=== PATIENT | female | born 1950 | race Caucasian/White ===

== ENCOUNTER 2017-08-27 13:12 | Outpatient (CLI) ==
[2017-08-27 14:46] VITALS: BMI 19.1
== END 2017-08-27 13:13 | disposition home or self-care (01) ==
LOC: DIETCN 13:12
PROVIDERS: ATTEND Family Medicine
DX: R73.01 Impaired fasting glucose (principal)

== ENCOUNTER 2018-03-04 10:26 | Outpatient (CLI) ==
--- NOTE | 2018-03-04 14:44 | DEXA ---
EXAM: Bone Densitometry DEXA HISTORY: Osteoporosis COMPARISON: None FINDINGS: DEXA scan of the lumbar spine was performed. Quality of the study is good. Bone mineral density is 1 .21 C grams per square centimeter. T-score is 0.3. Z-score is 2.3. T score L1 vertebral body is neg ative 1.1 DEXA scan right and left hip was performed. Quality of the study is good. Bone mineral density mean total is 01/08 and 03/02 grams per square centimeter. T-score is negative 1.5. Z-score is 0.1. I. Bone mineral density of the mean femoral neck is 0.742 with a T score of negative 2.1 and a Z score of negative 0.3. IMPRESSION: 1. Lumbar spine: Normal bone marrow density. L1 vertebral body demonstrates osteopenia 2. Left hip: Osteopenia 3. Left femoral neck: Osteopenia 4. 10 year risk for major osteoporotic fracture is 23% and for hip fracture is 4.6%. Reference Values according to World Health Organization criteria: T score greater than -1 is normal T score -1 to -2.5 is osteopenia T score less than -2.5 is osteoporosis.
--- NOTE | 2018-03-05 09:50 | MAMMO ---
EXAM: Digital screening mammogram with tomosynthesis HISTORY: Screening COMPARISON: 03/17/2013 FINDINGS: Digital MLO and CC views of the right and left breast were performed. Tomosynthesis was performed. Computer aided detection utilized. There are scattered fibroglandular densities. There is a mass in the left inferior breast posterior depth. There is no evidence for mass, asymmetry, dis tortion, or suspicious calcifications in the right breast. IMPRESSION: 1. Left breast mass. Recommend diagnostic mammogram and ultrasound for further evaluation. 2. Negative right breast mammogram. BIRADS category 0, incomplete
== END 2018-03-04 10:27 | disposition home or self-care (01) ==
LOC: RAD 10:26
PROVIDERS: ATTEND Family Medicine
DX: Z12.31 Encounter for screening mammogram for malignant neoplasm of breast (principal); M85.80 Other specified disorders of bone density and structure, unspecified site; Z78.0 Asymptomatic menopausal state
CPT/HCPCS: 77067

== ENCOUNTER 2018-03-26 10:36 | Outpatient (CLI) | payer OTHER ==
--- NOTE | 2018-03-26 11:18 | MAMMO ---
EXAM: Left digital diagnostic mammogram (2-D and 3-D) History: Left breast mass. Comparison: Screening mammogram 03/04/2018 Findings: Left breast density is scattered. Additional views of the left breast were obtained using tomosynthesis. CAD was reviewed by the radiologist. The additional views confirm the presence of a mass in the left inferior breast posterior depth. No suspicious microcalcifications. Impression: Indeterminate left breast mass. Recommend further evaluation with left breast ultrasoun d. BIRADS 0
--- NOTE | 2018-03-26 13:01 | US ---
EXAM: Left breast ultrasound. History: Left breast mass. Comparison: Left diagnostic mammogram 03/26/2018 Technique: Multiple sonographic images through the left breast were obtained. Color duplex Doppler was used to interrogate vascular flow. Findings: No masses, cysts or fluid collections are identified. Impression: No sonographic abnormalities. Recommend 6-month follow-up left diagnostic mammogram for the mass that was only seen on mammography and is probably benign. BIRADS 3
== END 2018-03-26 10:37 | disposition home or self-care (01) ==
LOC: RAD 10:36
PROVIDERS: ATTEND Family Medicine
DX: R92.2 Inconclusive mammogram (principal)

== ENCOUNTER 2018-09-11 10:55 | Outpatient (CLI) ==
--- NOTE | 2018-09-11 12:05 | DI ---
EXAM: Lumbar spine three view HISTORY: Pain COMPARISON: None TECHNIQUE: Three views lumbar spine were performed FINDINGS: Sacroiliac joints intact. Sacral arcuate intact. Mild rightward curvature lower thoracic and upper lumbar spine. Vertebral bodies normal in height. No fracture. Multilevel marginal osteo phyte formation. Varying degrees of multilevel intervertebral disc space narrowing, severe at L2-L3 and L5-S1. Multilevel facet arthrosis, greatest in the lower spine. 2 mm anterolisthesis of L4 on L 5. IMPRESSION: Advanced chronic discogenic degenerative disease and facet arthrosis.
--- NOTE | 2018-09-11 12:10 | DI ---
EXAM: Cervical spine five views HISTORY: Pain COMPARISON: None TECHNIQUE: Five views cervical spine were performed, including oblique views FINDINGS: Straightening of the normal cervical lordosis. Dens partially obscured on the odontoid vi ew. Vertebral bodies normal height. No fracture identified. No subluxation. Multilevel marginal o steophyte formation. Varying degrees of multilevel intervertebral disc space narrowing, greatest at C5-C6 and C6-C7 where there is moderate to severe intervertebral disc space narrowing. Multilevel fa cet and uncovertebral hypertrophy. Degenerative changes cause mild to moderate multilevel bilateral neural foraminal narrowing with possible severe neural foraminal narrowing on the left at C3-C4. Pre vertebral soft tissues appear normal. IMPRESSION: 1. Chronic discogenic degenerative disease and facet arthrosis. 2. Straightening of the normal cervical lordosis.
== END 2018-09-11 10:56 | disposition home or self-care (01) ==
LOC: RAD 10:55
PROVIDERS: ATTEND Internal Medicine Rheumatology
DX: M54.2 Cervicalgia (principal)

== ENCOUNTER 2018-09-26 08:09 | Outpatient (CLI) ==
--- NOTE | 2018-09-26 08:43 | MAMMO ---
EXAM: Left digital diagnostic mammogram (2-D and 3-D) History: Follow-up left breast mass. Comparison: Left diagnostic mammogram 03/26/2018 Findings: MLO and CC views of the left breast demonstrate scattered fibroglandular breast parenchyma . CAD was reviewed by the radiologist. Tomosynthesis was performed. Stable mass and 6 o'clock post erior depth within the left breast. No suspicious microcalcifications. Impression: Indeterminate left breast mass. Recommend further evaluation with left breast ultrasoun d. BIRADS 0, incomplete. Needs further evaluation
--- NOTE | 2018-09-26 10:42 | US ---
EXAM: Left breast ultrasound. History: Left breast mass. Comparison: Left diagnostic mammogram 09/26/2018 Technique: Multiple sonographic images through the left breast were obtained. Color duplex Doppler was used to interrogate vascular flow. Findings: 0.6 cm x 0.4 cm x 0.5 cm complicated cyst or cyst cluster at 7 o'clock 7 cm from nipple. This correlates with mammography. Impression: Probably benign complicated cyst versus cyst cluster at 7 o'clock. Recommend 6-month fo llow-up mammogram and ultrasound to document stability. BIRADS 3, probably benign
== END 2018-09-26 08:10 | disposition home or self-care (01) ==
LOC: RAD 08:09
PROVIDERS: ATTEND Family Medicine
DX: R92.2 Inconclusive mammogram (principal)